=== PATIENT | female | born 1995 | race Caucasian/White ===

== ENCOUNTER 2023-12-26 13:52 | Emergency (ER) | payer OTHER, SELFPAY ==
[2023-12-26 13:57] VITALS: BP 115/98; PULSE 95; RESP 18; TEMP 37; O2SAT 98; BMI 24.5
[2023-12-26 14:10] LABS: Appearance Urine Clear; Color Urine Yellow; Glucose Urine UA Negative (Negative); Leukocyte Esterase Urine Large (3+) (Negative); Nitrite Urine Negative (Negative); PH 7.5 (5.0-9.0); UMIC TRIGGER UACC YES; Urine Blood Negative (Negative); Urine Ketones Negative (Negative); Urine Protein Negative (Neg-Trace)
[2023-12-26 14:30] LABS: Bacteria Urine Trace (None Seen); Hyaline Casts Urine 0-2 /LPF (0-2); RBC Urine 0-2 /HPF (0-2); UACC Culture Trigger YES
--- NOTE | 2023-12-26 15:01 | ED_ITS ---
HPI - Female Genitourinary General Chief complaint: Urogenital-Female Stated complaint: UTI Time Seen by Provider: 12/26/23 14:07 Source: patient Mode of arrival: ambulatory Limitations: no limitations History of Present Illness ED Provider: Ino Marei PA-C HPI Narrative: 28 yold female with no significant pmh presents to the ED for dysuria. patient denies any abdominal pain, vaginal discharge, flank pain, fever, chills, back pain, any recent trauma. Patient denies any vaginal lesions. Related Data Previous Rx's ?Medication ?Instructions ?Recorded cefuroxime axetil 250 mg tablet 250 mg PO Q12H 7 days #14 tabs 12/26/23 phenazopyridine 200 mg tablet 200 mg PO TID 2 days #6 tabs 12/26/23 (Pyridium) Allergies Allergy/AdvReac Type Severity Reaction Status Date / Time No Known Allergies Allergy Verified 12/26/23 13:58 Review of Systems Review of Systems: dysuria Yes all other systems are reviewed and are negative [facility] Social History Social History Alcohol intake: never Smoked in Last 30 Days: No Use of substances other than those prescribed or required for medical reasons: No Advance Directives: No Advance Directives Information Provided: Yes Do you have a plan to hurt others: No Plan Physical Exam Vital Signs: Vital Signs: Last Vital Signs Temp 99.1 F 12/26/23 15:46 Pulse 76 12/26/23 15:46 Resp 18 12/26/23 15:46 BP 113/71 12/26/23 15:46 Pulse Ox 100 12/26/23 15:46 O2 Del Method Room Air 12/26/23 15:46 BMI result Body Mass Index 24.5 Const: General: cooperative, healthy appearing, comfortable, no acute distress, well developed, alert, awake and Physically active Orientation/consciousness: patient oriented x3 HEENT: Head: Yes normal to inspection, Yes No palpable skull fracture present, Yes normocephalic, Yes atraumatic and No abrasion Eyes: General: appearance normal, both eyes and all related structures Neck: Neck: Yes normal visual inspection, Yes full ROM, Yes no lymphadenopathy, Yes no meningeal signs, Yes trachea midline, Yes supple, No anterior neck swelling and No tender Chest: Chest palpation & inspection: normal inspection of the chest and normal palpation of entire chest wall Resp: Effort & Inspection: normal respiratory effort and able to speak in complete sentences Auscultation: clear to auscultation bilaterally Cardio: Jugular venous distension: no JVD Heart sounds: S1 normal heart s ound present and S2 normal heart sound present GI: Inspection: Yes normal to inspection Palpation (GI): Soft to palpation, not firm, nontender, no guarding and not rigid : General: No CVA tenderness and Yes no CVA tenderness Back/Spine/Pelvis: Back: no CVA tenderness, No CVA tenderness and No back tenderness Skin: General skin exam: no rashes or lesions noted, elasticity normal and turgor normal Neuro: General: patient oriented x3, gait normal, tone normal, moves all extremities, Normal light touch and pain sensation, no meningeal signs, no focal motor deficits, CN's II-XI intact bilaterally and normal sensation to monofilament Cranial nerves: Yes CN's II-XII intact bilaterally Extrem: General: Yes normal to inspection, Yes full ROM and Yes capillary refill normal Medical Decision Making Medical Decision Making MDM Narrative: 28 yold female presents to ED for dysuria with no abdominal pain, vaginal discharge, vaginal lesion, flank pain, back pain, fever, chills, nausea vomiting. Patient denies any recent trauma. UA ordered. UA showed white blood cell counts and trace bacteria. UA versus UTI. 3:27pm: Patient to be discharged with Pyridium and antibiotics. Was discussed for patient to have pelvic exam and tested for chlamydia and gonorrhea but patient refused. Patient states she is not sexually active. Patient states she follow up with primary care provider. Patient explained worrisome signs and informed to return to ED immediately. Not suspecting tubo-ovarian abscess, torsion, kidney stones, pyelonephritis, appendicitis, colitis, or any life- threatening etiologies. Differential Diagnosis Differential Diagnoses: The differential diagnosis associated with the presentation includes ( UTI,) Admission/Observation Consideration of admission/observation: Escalation of care including admission/observation considered Lab Data MDM Lab Attestation statement: I reviewed the patient's lab results. Labs: Lab Results 12/26/23 Range/Units 14:04 Urine Color Yellow Urine Appearance Clear Urine pH 7.5 (5.0-9.0) Ur Specific [place] 1.020 (1.005-1.025) Urine Protein Negative (Neg-Trace) mg/dL Urine Glucose (UA) Negative (Negative) mg/dL Urine Ketones Negative (Negative) mg/dL Urine Blood Negative (Negative) Urine Nitrite Negative (Negative) Ur Leukocyte Esterase Large (3+) H (Negative) Urine RBC 0-2 (0-2) /HPF Urine WBC 6-10 H (0-5) /HPF Ur Squamous Epith Cells 6-10 (0-2) /HPF Urine Bacteria Trace (None Seen) Hyaline Casts 0-2 (0-2) /LPF Independent Historian Clinical information obtained from an independent historian. History obtained f rom or confirmed by: Other ( patient) External Record Review External record reviewed: Other ( prior visits) Prescription Management I considered prescription management with: Antibiotic Discharge Plan Discharge Clinical Impression: Urinary tract infection, Dysuria Patient Disposition: Home, Self-Care Instructions: Urinary Tract Infection in Women (ED), Urinary Tract Infection in Women (DC), Dysuria (ED) Additional Instructions: recommend follow-up with your primary care provider. Return to the ED immediately for any abdominal pain, flank pain, fever, chills, nausea, vomiting, bloody urine, vaginal discharge, vaginal lesions, weakness, dizziness, back pain, or any other concerning symptoms. Prescriptions: New cefuroxime axetil 250 mg tablet 250 mg PO Q12H 7 Days Qty: 14 0RF phenazopyridine [Pyridium] 200 mg tablet 200 mg PO TID 2 Days Qty: 6 0RF Interventions: ED Discharge Assessment Last Done: 12/26/23 15:46 Discharge Date/Time: 12/26/23 15:48 Print Language: Ecuadorean
[2023-12-26 15:46] VITALS: BP 113/71; PULSE 76; RESP 18; TEMP 37.3; O2SAT 100
== END 2023-12-26 15:48 | disposition home or self-care (01) ==
PROVIDERS: Emergency Provider Emergency Medicine
DX: N39.0 Urinary tract infection, site not specified (principal); R30.0 Dysuria
CPT/HCPCS: 81001; 87086; 99283; 99284

== ENCOUNTER 2024-02-17 20:24 | Emergency (ER) | payer OTHER, SELFPAY ==
--- NOTE | ~2024-02-17 | US_ITS ---
EXAMINATION: US RETROPERITONEAL COMPLETE (RENAL) CLINICAL INFORMATION: Pain. Concern for renal calculus. COMPARISON: None available. TECHNIQUE: Real-time imaging of the kidneys and bladder. FINDINGS: RIGHT KIDNEY: 10 x 3.8 x 4.9 cm (SAG x AP x TRV). The kidney is normal in size, contour, and echogenicity. Renal cortical thickness is normal. No calculi or focal parenchymal lesions. No hydronephrosis. LEFT KIDNEY: 10.3 x 4.7 x 5.2 cm (SAG x AP x TRV). The kidney is normal in size, contour, and echogenicity. Renal cortical thickness is normal. No calculi or focal parenchymal lesions. No hydronephrosis. US/US renal BI IMPRESSION: Normal renal ultrasound. Electronically signed by: Nazario Verde MD 02/18/2024 04:46 AM EDT
[2024-02-17 20:57] VITALS: BP 121/76; PULSE 101; RESP 16; TEMP 36.8; O2SAT 97; BMI 23.9
[2024-02-17 21:32] LABS: MANUAL DIFF FLAG NO
[2024-02-17 21:53] LABS: Alanine Aminotransferase 10 U/L (0-31); Albumin Level 4.7 g/dL (3.5-5.0); Alkaline Phosphatase 69 U/L (39-117); Anion Gap 11 (12-20); Aspartate Amino Transferase 16 U/L (5-31); Bilirubin Total 0.2 mg/dL (0.0-1.0); Blood Urea Nitrogen 12 mg/dL (9-16); Calcium 9.9 mg/dL (8.4-10.2); Carbon Dioxide 26 mmol/L (22-29); Chloride 105 mmol/L (96-108); Creatinine Clr Calc Pharmacy 83.9; Estimated Glomerular Filt Rate > 60; Glucose Random 117 mg/dL (60-115); Sodium 138 mmol/L (135-145); Total Protein 7.9 g/dL (6.5-8.0)
[2024-02-17 22:06] LABS: Basophils Percent Auto 0.4 % (0-2); Eosinophils Absolute Auto 0.2 X10*3/uL (0.0-0.4); Eosinophils Percent Auto 2.7 % (0-4); Hematocrit 36.6 % (37.0-47.0); Hemoglobin 12.4 g/dl (12.0-16.0); Imm Gran Abs Auto 0.02 X10*3/uL (0.00-0.03); Imm Gran Pct Auto 0.3 % (0.0-0.4); Lymphocytes Absolute Auto 1.3 X10*3/uL (1.2-4.9); Lymphocytes Percent Auto 17.2 % (20-40); Mean Corpuscular HGB Conc 33.9 g/dl (31.0-35.0); Mean Corpuscular Hemoglobin 30.4 pg (27.0-33.0); Mean Corpuscular Volume 89.7 fL (80.0-98.0); Mean Platelet Volume 10.1 fL (9.4-12.3); Monocytes Absolute Auto 0.9 X10*3/uL (0.1-1.2); Monocytes Percent Auto 11.8 % (2-11); Neutrophils Absolute Auto 5.3 x10*3/uL (2.0-8.3); Neutrophils Percent Auto 67.6 % (45-73); Platelet Count 277 X10*3/uL (160-400); Red Blood Count 4.08 X10*6/uL (4.20-5.50); Red Cell Distribution Width 11.6 % (11.0-16.0); White Blood Count 7.8 X10*3/uL (4.8-10.8)
[2024-02-17 22:07] LABS: Appearance Urine Clear; Color Urine Yellow; Glucose Urine UA Negative (Negative); Leukocyte Esterase Urine Negative (Negative); Nitrite Urine Negative (Negative); Specific Gravity - Urine 1.015 (1.005-1.025); UMIC TRIGGER UACC YES; Urine Blood Trace (Negative); Urine Ketones Negative (Negative); Urine Protein Negative (Neg-Trace)
[2024-02-17 22:08] LABS: Urine Pregnancy NEGATIVE (NEGATIVE)
[2024-02-17 22:09] LABS: UPreg QC Valid YES
[2024-02-17 22:26] LABS: Bacteria Urine None Seen (None Seen); Hyaline Casts Urine 0-2 /LPF (0-2); Squamous Epithelial Cell Urine 0-2 /HPF (0-2); WBC Urine 0-5 /HPF (0-5)
[2024-02-17 22:28] VITALS: BP 118/69; PULSE 86; RESP 16; TEMP 37.2; O2SAT 97
[2024-02-17 22:46] LABS: Influenza A PCR NEGATIVE (Negative); Influenza B PCR NEGATIVE (Negative); Resp Syncy Virus RNA Qual PCR NEGATIVE (Negative); SARS COV2 PCR INHOUSE NEGATIVE (Negative)
--- NOTE | 2024-02-18 00:57 | ED_ITS ---
HPI - Female Genitourinary General Chief complaint: Urogenital-Female Stated complaint: urethral pressure, feels warm, prev sick Time Seen by Provider: 02/18/24 00:02 Source: patient History of Present Illness ED Provider: Blanca CARTER Narrative: 28-year-old female presenting for dysuria, urethral pressure. Patient states that she has been experiencing these symptoms intermittently for approximately 1-2 months. She was seen here and treated for UTI. She states that her symptoms had resolved shortly after starting her antibiotics however have since returned. She is endorsing dysuria, urethral pressure, increased urine frequency and right flank pain. She is currently also experiencing URI symptoms with nasal congestion, sinus pressure and sneezing Related Data Previous Rx's ?Medication ?Instructions ?Recorded cefuroxime axetil 250 mg tablet 250 mg PO Q12H 7 days #14 tabs 12/26/23 phenazopyridine 200 mg tablet 200 mg PO TID 2 days #6 tabs 12/26/23 (Pyridium) cephalexin 500 mg capsule 500 mg PO QID 7 days #28 caps 02/18/24 Allergies Allergy/AdvReac Type Severity Reaction Status Date / Time No Known Allergies Allergy Verified 02/17/24 20:57 Review of Systems 2 Review of Systems: Patient endorses right flank pain, dysuria, polyuria, sinus pressure, sneezing, nasal congestion, vaginal discharge Patient denies chest pain, shortness of breath, vomiting, diarrhea, fevers PMFSH Social History Social History Alcohol intake: never Smoked in Last 30 Days: No Advance Directives: No Advance Directives Information Provided: No Do you have a plan to hurt others: No Plan Patient : No Physical Exam 2 Vital Signs: Vital Signs: Last Vital Signs Temp 99 F 02/17/24 22:28 Pulse 86 02/17/24 22:28 Resp 16 02/17/24 22:28 BP 118/69 02/17/24 22:28 Pulse Ox 97 02/17/24 22:28 O2 Del Method Room Air 02/17/24 22:28 BMI result Body Mass Index 23.9 Lungs clear to auscultation bilaterally, normal S1-S2 regular rhythm, abdomen is soft nontender nondistended, no CVA tenderness appreciated, no external signs of trauma Medical Decision Making Medical Decision Making [facility] Narrative: CC female presenting with dysuria, urethral pressure, polyuria and right flank pain. My concerns are for UTI, pyelonephritis and nephrolithiasis. 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 UA with trace blood in 3-5 RBCs, BMP within normal limits, CBC within normal limits 02/17/24 21:23 02/17/24 21:23 Labs: Lab Results 02/17/24 Range/Units 21:23 WBC 7.8 (4.8-10.8) X10*3/uL RBC 4.08 L (4.20-5.50) X10*6/uL Hgb 12.4 (12.0-16.0) g/dl Hct 36.6 L (37.0-47.0) % MCV 89.7 (80.0-98.0) fL MCH 30.4 (27.0-33.0) pg MCHC 33.9 (31.0-35.0) g/dl RDW 11.6 (11.0-16.0) % Plt Count 277 (160-400) X10*3/uL MPV 10.1 (9.4-12.3) fL Immature Gran % (Auto) 0.3 (0.0-0.4) % Neut % (Auto) 67.6 (45-73) % Lymph % (Auto) 17.2 L (20-40) % [place] % (Auto) 11.8 H (2-11) % Eos % (Auto) 2.7 (0-4) % Baso % (Auto) 0.4 (0-2) % Lymph # (Auto) 1.3 (1.2-4.9) X10*3/uL [place] # (Auto) 0.9 (0.1-1.2) X10*3/uL Eos # (Auto) 0.2 (0.0-0.4) X10*3/uL Baso # (Auto) 0.0 (0.0-0.2) X10*3/uL Abs Immat Gran (auto) 0.02 (0.00-0.03) X10*3/uL Absolute Neuts (auto) 5.3 (2.0-8.3) x10*3/uL Absolute Nucleated RBC 0.000 (0.0-0.012) X10*3/uL Nucleated RBC % (auto) 0.0 (0.0-0.2) /100WBC Sodium 138 (135-145) mmol/L Potassium 4.0 (3.3-5.1) mmol/L Chloride 105 (96-108) mmol/L Carbon Dioxide 26 (22-29) mmol/L Anion Gap 11 L (12-20) BUN 12 (9-16) mg/dL Creatinine 0.84 (0.5-1.4) mg/dL Estim Creat Clear Calc 83.9 Estimated GFR > 60 Random Glucose 117 H (60-115) mg/dL Calcium 9.9 (8.4-10.2) mg/dL Total Bilirubin 0.2 (0.0-1.0) mg/dL AST 16 (5-31) U/L ALT 10 (0-31) U/L Alkaline Phosphatase 69 (39-117) U/L Total Protein 7.9 (6.5-8.0) g/dL Albumin 4.7 (3.5-5.0) g/dL Urine Color Yellow Urine Appearance Clear Urine pH 7.0 (5.0-9.0) Ur Specific [place] 1.015 (1.005-1.025) Urine Protein Negative (Neg-Trace) mg/dL Urine Glucose (UA) Negative (Negative) mg/dL Urine Ketones Negative (Negative) mg/dL Urine Blood Trace H (Negative) Urine Nitrite Negative (Negative) Ur Leukocyte Esterase Negative (Negative) Urine RBC 3-5 H (0-2) /HPF Urine WBC 0-5 (0-5) /HPF Ur Squamous Epith Cells 0-2 (0-2) /HPF Urine Bacteria None Seen (None Seen) Hyaline Casts 0-2 (0-2) /LPF Urine Test NEGATIVE (NEGATIVE) Influenza Type A (PCR) NEGATIVE (Negative) Influenza Type B (PCR) NEGATIVE (Negative) RSV RNA Qual (PCR) NEGATIVE (Negative) SARS-CoV-2 RNA (RT-PCR) NEGATIVE (Negative) Discharge Plan Discharge Clinical Impression: Dysuria Additional Instructions: Please schedule an appointment with grinding 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
[2024-02-18] MEDS: cefTRIAXone sodium 1 GM in 0.9 % Sodium Chloride 50 ML IV (02:29)
[2024-02-18 02:44] VITALS: BP 119/56; PULSE 75; RESP 16; TEMP 37; O2SAT 99
[2024-02-18 05:18] VITALS: BP 115/63; BP 122/70; PULSE 75; PULSE 79; RESP 15; RESP 16; TEMP 36.6; TEMP 36.9; O2SAT 98
[2024-02-18 14:20] LABS: CT PCR NOT DETECTED (Not Detect.); NG PCR NOT DETECTED (Not Detect.)
== END 2024-02-18 05:23 | disposition home or self-care (01) ==
PROVIDERS: Physician Assistant Medical; Student in an Organized Health Care Education/Training Program; Emergency Provider Emergency Medicine; PCP Internal Medicine
DX: R30.0 Dysuria (principal); R35.0 Frequency of micturition; R10.9 Unspecified abdominal pain; R09.81 Nasal congestion; R06.7 Sneezing; Z87.440 Personal history of urinary (tract) infections; Z03.818 Encounter for observation for suspected exposure to other biological agents ruled out
CPT/HCPCS: 0241U; 76775; 80053; 81001; 81003; 81025; 85025; 87491; 87591; 96365; 99284; J0696